=== PATIENT | female | born 1935 | race African-American/Black ===

== ENCOUNTER 2016-05-15 11:43 | Outpatient (CLI) | payer MEDICARE, OTHER ==
[2016-05-15 13:24] LABS: ALT (SGPT) 14 U/L (0-55); AST (SGOT) 18 U/L (5-34); Alkaline Phosphatase 60 U/L (40-150); Anion Gap 11 mmol/L (10-20); BUN (Urea Nitrogen) 10 mg/dL (9.8-20.1); Bilirubin, Total 0.4 mg/dL (0.2-1.2); Calc. Creatinine Clearance 0 mL/min (70-130); Calcium 9.1 mg/dL (7.8-10.44); Carbon Dioxide 24 mmol/L (23-31); Chloride 111 mmol/L (98-107); Estimated GFR-MDRD 83; LDL Cholesterol, Calculated 79 mg/dL; Protein, Total 6.7 g/dL (5.8-8.1)
== END 2016-05-15 11:44 | disposition home or self-care (01) ==
LOC: NAVSJIPCSP 11:43
PROVIDERS: ATTEND Internal Medicine
DX: I11.9 Hypertensive heart disease without heart failure (principal); Q61.9 Cystic kidney disease, unspecified; E78.2 Mixed hyperlipidemia
CPT/HCPCS: 36415; 80053; 80061

== ENCOUNTER 2016-07-21 09:10 | Emergency (ER) | payer MEDICARE, OTHER ==
[2016-07-21] MEDS ORDERED: Diazepam 10 MG/2 ML SYRINGE ONE (09:46)
[2016-07-21] MEDS ORDERED: Ketorolac Tromethamine 30 MG/ML VIAL ONE (09:46)
--- NOTE | 2016-07-21 11:40 | CT ---
CT LUMBAR SPINE: Date: 07/21/16 PROVIDED CLINICAL HISTORY: Back pain status post injury. FINDINGS: Comparison made with the examination performed 09/19/15. Five non-rib bearing lumbar-type vertebral bodies are again noted. There has been interval mild supe rior end plate compression deformity of L1 with CT findings suggesting an acute to subacute process. Vertebral body heights appear otherwise preserved. No additional fracture is identified. There is s table abnormal soft tissue density in the left ventral lateral spinal canal posterior to the L5-S1 l evel presumably reflecting herniated disc material. This appears slightly less conspicuous than on t he prior study. The osseous structures demonstrate no concerning osteoblastic or osteolytic lesions. IMPRESSION: 1. Interval superior end plate compression deformity of L1, with CT findings suggesting an acute to subacute process. 2. Stable slightly decreased presumed left paracentral disc extrusion at L5-S1. Consider further ch aracterization with lumbar MRI on a nonemergent basis as clinically indicated. POS: [facility]
== END 2016-07-21 11:30 | disposition home or self-care (01) ==
LOC: NAV ERS 09:10
DX: S32.010A Wedge compression fracture of first lumbar vertebra, initial encounter for closed fracture (principal); I25.2 Old myocardial infarction; K21.9 Gastro-esophageal reflux disease without esophagitis; E78.5 Hyperlipidemia, unspecified; E78.00 Pure hypercholesterolemia, unspecified; I10 Essential (primary) hypertension; Z87.891 Personal history of nicotine dependence; W18.30XA Fall on same level, unspecified, initial encounter
CPT/HCPCS: 72131; 96372; J1885; J3360

== ENCOUNTER 2016-08-06 09:46 | Outpatient (CLI) | payer MEDICARE, OTHER ==
[2016-08-06 13:42] LABS: Anion Gap 15 mmol/L (10-20); BUN (Urea Nitrogen) 16 mg/dL (9.8-20.1); Calc. Creatinine Clearance 0 mL/min (70-130); Calcium 9.3 mg/dL (7.8-10.44); Carbon Dioxide 23 mmol/L (23-31); Cardiac Risk 3.5 (Less than 4.5); Chloride 101 mmol/L (98-107); Cholesterol 139 mg/dL (< 200 Desired); Estimated GFR-MDRD 76; Glucose 105 mg/dL (83-110); HDL Cholesterol 40 mg/dL (>60 Neg Risk); LDL Cholesterol, Calculated 82 mg/dL; Potassium 4.3 mmol/L (3.5-5.1); Sodium 135 mmol/L (136-145); Triglycerides 87 mg/dL (Less than 150)
[2016-08-06 14:02] LABS: Hemoglobin 11.2 g/dL (12.0-16.0); Mean Corpuscular HGB CONC 31.5 g/dL (32.0-36.0); Mean Corpuscular Hemoglobin 24.8 pg (27.0-31.0); Mean Corpuscular Volume 78.5 fl (81.0-99.0); Mean Platelet Volume 7.7 fL (7.4-10.4); Platelet Count 236 thou/uL (130-400); RBC Distribution Width 13.9 % (11.5-14.5); Red Blood Cell (RBC) Count 4.53 mill/uL (4.20-5.40); White Blood Cell (WBC) Count 5.3 thou/uL (4.8-10.8)
[2016-08-06 14:13] LABS: Anisocytosis SLIGHT = 6-15 cells (100X) (0-5/hpf); MDiff Complete? YES; Microcytosis SLIGHT = 6-15 cells (100X) (0-5/hpf); PLT Morphology Comment Appears Adequate
== END 2016-08-06 09:47 | disposition home or self-care (01) ==
LOC: NAVSJIPCSP 09:46
PROVIDERS: ATTEND Internal Medicine
DX: Z51.81 Encounter for therapeutic drug level monitoring (principal); I11.9 Hypertensive heart disease without heart failure; Z79.899 Other long term (current) drug therapy
CPT/HCPCS: 36415; 80048; 80061; 85025

== ENCOUNTER 2016-08-07 11:38 | Outpatient (CLI) | payer MEDICARE, OTHER ==
[2016-08-07 12:02] LABS: Bilirubin Negative (Negative); Blood, Urine Negative (Negative); Clarity Clear (Clear); Glucose, Urine (Dipstick) Negative (Negative); Leukocyte Trace (Negative); Nitrite Negative (Negative); Protein, Urine (Dipstick) Negative (Neg-Trace); Urobilinogen 0.2 mg/dL (0.2-1.0)
[2016-08-07 12:14] LABS: Bacteria/HPF Rare-Few HPF (None Seen); RBC/HPF None Seen HPF (0-3); Squamous Epithelial 0-3 HPF (0-3); WBC/HPF 0-3 HPF (0-3)
== END 2016-08-07 11:39 | disposition home or self-care (01) ==
LOC: NAV LABSP 11:38
PROVIDERS: ATTEND Internal Medicine
DX: I11.9 Hypertensive heart disease without heart failure (principal); Z79.899 Other long term (current) drug therapy
CPT/HCPCS: 81003; 81015

== ENCOUNTER 2016-11-15 10:19 | Outpatient (CLI) | payer MEDICARE, MEDICAID ==
[2016-11-15 12:46] LABS: #Eosinphils 0.1 thou/uL (0.0-0.7); #Lymphocytes 1.8 thou/uL (1.20-3.40); #Monocytes 0.3 thou/uL (0.11-0.59); #Neutrophils 3.1 thou/uL (1.40-6.50); %Basophils 0.9 % (0.0-1.0); %Eosinophils 2.6 % (0.0-10.0); %Monocytes 5.5 % (0.0-10.0); %Neutrophils 58.1 % (42.0-75.0); Hemoglobin 10.8 g/dL (12.0-16.0); Mean Corpuscular HGB CONC 31.2 g/dL (32.0-36.0); Mean Corpuscular Hemoglobin 25.4 pg (27.0-31.0); Mean Corpuscular Volume 81.3 fl (81.0-99.0); Mean Platelet Volume 7.4 fL (7.4-10.4); Platelet Count 218 thou/uL (130-400); RBC Distribution Width 13.6 % (11.5-14.5); Red Blood Cell (RBC) Count 4.23 mill/uL (4.20-5.40); White Blood Cell (WBC) Count 5.4 thou/uL (4.8-10.8)
[2016-11-15 13:08] LABS: Cardiac Risk 3.3 (Less than 4.5)
== END 2016-11-15 10:20 | disposition home or self-care (01) ==
LOC: NAVSJIPCSP 10:19
PROVIDERS: ATTEND Internal Medicine
DX: E78.5 Hyperlipidemia, unspecified (principal); D50.9 Iron deficiency anemia, unspecified; Z79.899 Other long term (current) drug therapy
CPT/HCPCS: 36415; 80061; 82728; 83540; 83550; 85025

== ENCOUNTER 2017-01-14 15:13 | Outpatient (CLI) | payer MEDICARE, MEDICAID ==
[2017-01-14 17:37] LABS: Chloride 110 mmol/L (98-107); Potassium 4.1 mmol/L (3.5-5.1); Sodium 145 mmol/L (136-145)
[2017-01-14 18:53] LABS: BUN (Urea Nitrogen) 10 mg/dL (9.8-20.1); Calc. Creatinine Clearance 0 mL/min (70-130); Calcium 9.5 mg/dL (7.8-10.44); Carbon Dioxide 23 mmol/L (23-31); Estimated GFR-MDRD 81; Glucose 80 mg/dL (83-110)
[2017-01-14 19:58] LABS: Anion Gap 16 mmol/L (10-20)
[2017-01-14 20:03] LABS: #Eosinphils 0.2 thou/uL (0.0-0.7); #Lymphocytes 1.9 thou/uL (1.20-3.40); #Monocytes 0.3 thou/uL (0.11-0.59); #Neutrophils 3.6 thou/uL (1.40-6.50); %Basophils 0.5 % (0.0-1.0); %Eosinophils 2.6 % (0.0-10.0); %Lymphocytes 31.6 % (21.0-51.0); %Neutrophils 60.2 % (42.0-75.0); Hemoglobin 11.7 g/dL (12.0-16.0); Mean Corpuscular HGB CONC 30.8 g/dL (32.0-36.0); Mean Corpuscular Hemoglobin 24.8 pg (27.0-31.0); Mean Corpuscular Volume 80.6 fl (81.0-99.0); Mean Platelet Volume 9.2 fL (7.4-10.4); Platelet Count 199 thou/uL (130-400); RBC Distribution Width 13.9 % (11.5-14.5); Red Blood Cell (RBC) Count 4.73 mill/uL (4.20-5.40); White Blood Cell (WBC) Count 5.9 thou/uL (4.8-10.8)
== END 2017-01-14 15:14 | disposition home or self-care (01) ==
LOC: NAVSJIPCSP 15:13 → NAV LAB 15:14
PROVIDERS: ATTEND Internal Medicine
DX: R04.2 Hemoptysis (principal); R04.0 Epistaxis
CPT/HCPCS: 80048; 85025

== ENCOUNTER 2017-07-23 12:49 | Outpatient (CLI) | payer MEDICARE, MEDICAID, OTHER ==
--- NOTE | 2017-07-23 14:28 | RAD ---
PA AND LATERAL CHEST: History: Cough, shortness of breath. FINDINGS: The heart size is normal. The aorta is tortuous. The lungs are well expanded without focal areas of c onsolidation, pneumothorax, or pleural effusions. No acute osseous abnormalities are seen. IMPRESSION: No radiographic evidence of acute cardiopulmonary process. POS: [facility]
== END 2017-07-23 12:50 | disposition home or self-care (01) ==
LOC: NAV RAD 12:49
PROVIDERS: ATTEND Internal Medicine
DX: R05 Cough (principal)
CPT/HCPCS: 71046

== ENCOUNTER 2017-11-15 11:26 | Emergency (ER) | payer MEDICARE, OTHER ==
[2017-11-15] MEDS ORDERED: Acetaminophen/Codeine 30-300mg Tablet ONE (11:42)
[2017-11-15] MEDS ORDERED: Ibuprofen 200 MG TAB ONE (11:42)
== END 2017-11-15 12:38 | disposition home or self-care (01) ==
LOC: NAV ERS 11:26
DX: M13.0 Polyarthritis, unspecified (principal); I10 Essential (primary) hypertension; I25.2 Old myocardial infarction; K21.9 Gastro-esophageal reflux disease without esophagitis; E78.5 Hyperlipidemia, unspecified; Z87.891 Personal history of nicotine dependence; Z79.899 Other long term (current) drug therapy
CPT/HCPCS: 99283

== ENCOUNTER 2018-01-21 17:14 | Emergency (ER) | payer MEDICARE, MEDICAID ==
[2018-01-21] MEDS ORDERED: cloNIDine 0.1 MG TAB ONE (17:34)
[2018-01-21] MEDS ORDERED: Lisinopril 20 MG TAB ONE (18:24)
== END 2018-01-21 19:10 | disposition home or self-care (01) ==
LOC: NAV ERS 17:14
DX: R04.0 Epistaxis (principal); I10 Essential (primary) hypertension; K21.9 Gastro-esophageal reflux disease without esophagitis; I25.2 Old myocardial infarction; E78.5 Hyperlipidemia, unspecified; Z87.891 Personal history of nicotine dependence; Z79.899 Other long term (current) drug therapy; Z79.891 Long term (current) use of opiate analgesic
CPT/HCPCS: 99283

== ENCOUNTER 2018-06-28 08:51 | Emergency (ER) | payer MEDICARE, MEDICAID ==
[2018-06-28] MEDS ORDERED: Meclizine HCl 25 MG TAB ONE (09:48)
[2018-06-28 09:55] LABS: #Basophils 0.1 thou/uL (0.0-0.2); #Eosinphils 0.1 thou/uL (0.0-0.7); #Lymphocytes 1.5 thou/uL (1.20-3.40); #Monocytes 0.6 thou/uL (0.11-0.59); #Neutrophils 7.4 thou/uL (1.40-6.50); %Basophils 1.1 % (0.0-1.0); %Eosinophils 1.4 % (0.0-10.0); %Lymphocytes 15.7 % (21.0-51.0); %Monocytes 5.7 % (0.0-10.0); %Neutrophils 76.1 % (42.0-75.0); Hemoglobin 11.2 g/dL (12.0-16.0); Mean Corpuscular HGB CONC 30.4 g/dL (32.0-36.0); Mean Corpuscular Hemoglobin 26.3 pg (27.0-31.0); Mean Corpuscular Volume 86.3 fL (78.0-98.0); Mean Platelet Volume 7.3 fL (7.4-10.4); Platelet Count 232 thou/uL (130-400); RBC Distribution Width 15.7 % (11.5-14.5); Red Blood Cell (RBC) Count 4.26 mill/uL (4.20-5.40); White Blood Cell (WBC) Count 9.7 thou/uL (4.8-10.8)
[2018-06-28 10:09] LABS: Bilirubin Negative (Negative); Blood, Urine Trace (Negative); Glucose, Urine (Dipstick) Negative (Negative); Leukocyte Large (Negative); Nitrite Negative (Negative); Protein, Urine (Dipstick) Negative (Neg-Trace); Specific Gravity, Urine 1.015 (1.005-1.030); Urobilinogen 0.2 mg/dL (0.2-1.0)
[2018-06-28 10:10] LABS: ALT (SGPT) 11 U/L (8-55); AST (SGOT) 21 U/L (5-34); Albumin 4.3 g/dL (3.4-4.8); Alkaline Phosphatase 46 U/L (40-150); Anion Gap 15 mmol/L (10-20); BUN (Urea Nitrogen) 12 mg/dL (9.8-20.1); Bilirubin, Total 0.6 mg/dL (0.2-1.2); Calc. Creatinine Clearance 0 mL/min (70-130); Calcium 9.6 mg/dL (7.8-10.44); Carbon Dioxide 23 mmol/L (23-31); Chloride 107 mmol/L (98-107); Estimated GFR-MDRD 86; Globulin 2.9 g/dL (2.4-3.5); Glucose 106 mg/dL (83-110); Potassium 3.7 mmol/L (3.5-5.1); Protein, Total 7.2 g/dL (6.0-8.3); Sodium 141 mmol/L (136-145)
[2018-06-28 10:17] LABS: Clarity SL HAZY (Clear)
[2018-06-28 10:19] LABS: Bacteria/HPF 1+ HPF (None Seen); RBC/HPF 0-3 HPF (0-3); Squamous Epithelial 0-3 HPF (0-3)
[2018-06-28] MEDS ORDERED: Cipro 250 MG TAB ONE (10:27)
--- NOTE | 2018-06-28 10:43 | RAD ---
PORTABLE AP CHEST: Date: 06/28/18 HISTORY: Cough and dizziness. Vertigo. COMPARISON: 07/23/17. FINDINGS: Metallic densities overlie the midline, likely related to overlying clothing artifact. The cardiac si lhouette is within normal limits. Pulmonary vasculature is magnified by projection, but is at the upp er limits of normal. No consolidation or pleural fluid is seen, and the lungs are otherwise clear. Va scular calcifications are seen in an ectatic thoracic aorta. There has been no other interval change from prior exam. IMPRESSION: No acute cardiopulmonary process. POS: [facility]
--- NOTE | 2018-06-28 10:45 | CT ---
NONCONTRAST CT HEAD: Date: 06/28/18 HISTORY: Dizziness with standing. Vertigo. Patient feels bad. COMPARISON: None available. FINDINGS: There is diminished attenuation seen in the periventricular white matter, which is nonspecific but li courtney reflective of chronic small vessel ischemic changes. There is no evidence of an acute cortical i nfarction, hemorrhage, mass effect, or midline shift. Mild cerebral volume loss is present. Ventricul ar system is normal in size, shape, and position. Visualized paranasal sinuses and mastoid air cells are clear. Calvarial structures are intact. IMPRESSION: 1. No acute intracranial abnormality is demonstrated. 2. Chronic small vessel ischemic changes and cerebral volume loss. POS: [facility]
== END 2018-06-28 12:12 | disposition short-term general hospital (02) ==
LOC: NAV ERS 08:51
DX: R42 Dizziness and giddiness (principal); I10 Essential (primary) hypertension; N39.0 Urinary tract infection, site not specified; I25.2 Old myocardial infarction; K21.9 Gastro-esophageal reflux disease without esophagitis; E78.5 Hyperlipidemia, unspecified; Z87.891 Personal history of nicotine dependence; Z79.899 Other long term (current) drug therapy
CPT/HCPCS: 70450; 71045; 80053; 81003; 81015; 84443; 84484; 85025; 93005

== ENCOUNTER 2018-08-16 11:38 | Emergency (ER) | payer MEDICARE, OTHER | END 2018-08-16 12:30 | disposition home or self-care (01) | LOC: NAV ERS 11:38 | DX: R51 Headache (principal); E78.5 Hyperlipidemia, unspecified; I10 Essential (primary) hypertension; I25.2 Old myocardial infarction; K21.9 Gastro-esophageal reflux disease without esophagitis; Z87.891 Personal history of nicotine dependence; Z79.899 Other long term (current) drug therapy | CPT/HCPCS: 99283 ==

== ENCOUNTER 2018-08-22 12:02 | Emergency (ER) | payer MEDICARE, OTHER | END 2018-08-22 12:59 | disposition home or self-care (01) | LOC: NAV ERS 12:02 | DX: R51 Headache (principal); I25.2 Old myocardial infarction; K21.9 Gastro-esophageal reflux disease without esophagitis; E78.5 Hyperlipidemia, unspecified; I10 Essential (primary) hypertension; Z87.891 Personal history of nicotine dependence; Z79.899 Other long term (current) drug therapy ==

== ENCOUNTER 2018-09-01 09:46 | Emergency (ER) | payer MEDICARE, OTHER ==
[2018-09-01] MEDS ORDERED: Acetaminophen/Codeine 30-300mg Tablet ONE (10:10)
[2018-09-01] MEDS ORDERED: Cyclobenzaprine 10 MG TAB ONE (10:10)
== END 2018-09-01 11:40 | disposition home or self-care (01) ==
LOC: NAV ERS 09:46
DX: S39.82XA Other specified injuries of lower back, initial encounter (principal); E78.5 Hyperlipidemia, unspecified; I10 Essential (primary) hypertension; K21.9 Gastro-esophageal reflux disease without esophagitis; Z87.891 Personal history of nicotine dependence; Z79.899 Other long term (current) drug therapy; X58.XXXA Exposure to other specified factors, initial encounter
CPT/HCPCS: 99283

== ENCOUNTER 2018-09-05 10:57 | Outpatient (CLI) | payer MEDICARE, OTHER ==
--- NOTE | 2018-09-05 11:27 | RAD ---
LUMBAR SPINE 3 VIEWS: HISTORY: Acute back pain FINDINGS: Comparison is made with 09/03/2016. There is stable mild anterior wedge compression of the superior endplate of L1 vertebral body. No new compression fracture or subluxation is identified. Mild degenerative changes in the spine are again seen.
--- NOTE | 2018-09-05 11:31 | RAD ---
XR Thoracic Spine 3 V STANDARD History: [Acute bilateral thoracic back pain.] Comparison: Radiograph June 28, 2018 Findings: There is no acute fracture or malalignment of the thoracic spine. Compression deformity is present at L1, please see lumbar spine report. Dense calcifications of the aorta. Lungs are clear. Impression: No acute fracture or malalignment of the thoracic spine.
== END 2018-09-05 10:58 | disposition home or self-care (01) ==
LOC: NAV RAD 10:57
PROVIDERS: ATTEND Nurse Practitioner Adult Health
DX: M54.6 Pain in thoracic spine (principal)
CPT/HCPCS: 72072; 72100

== ENCOUNTER 2018-12-27 08:39 | Emergency (ER) | payer MEDICARE, OTHER ==
[2018-12-27] MEDS ORDERED: Ondansetron PF 4 MG/2 ML Vial ONE (09:11)
[2018-12-27] MEDS ORDERED: Meclizine HCl 25 MG TAB ONE (09:11)
--- NOTE | 2018-12-27 09:43 | CT ---
Brain CT without IV contrast: HISTORY: Dizziness and elevated blood pressure COMPARISON: 07/16/2018 FINDINGS: Scattered chronic white matter ischemic change. No focal mass or midline shift. No intra or extra-axi al hemorrhage. Sinuses and mastoids are clear. IMPRESSION: No significant acute process. No mass or bleed.
[2018-12-27 10:06] LABS: #Basophils 0.1 thou/uL (0.0-0.2); #Eosinphils 0.1 thou/uL (0.0-0.7); #Lymphocytes 1.1 thou/uL (1.20-3.40); #Monocytes 0.7 thou/uL (0.11-0.59); #Neutrophils 9.2 thou/uL (1.40-6.50); %Basophils 0.5 % (0.0-1.0); %Lymphocytes 9.8 % (21.0-51.0); %Monocytes 6.4 % (0.0-10.0); %Neutrophils 82.2 % (42.0-75.0); Hemoglobin 10.4 g/dL (12.0-16.0); Mean Corpuscular HGB CONC 29.2 g/dL (32.0-36.0); Mean Corpuscular Hemoglobin 23.9 pg (27.0-31.0); Mean Corpuscular Volume 81.9 fL (78.0-98.0); Mean Platelet Volume 7.2 fL (7.4-10.4); Platelet Count 192 thou/uL (130-400); RBC Distribution Width 24.4 % (11.5-14.5); Red Blood Cell (RBC) Count 4.35 mill/uL (4.20-5.40); White Blood Cell (WBC) Count 11.2 thou/uL (4.8-10.8)
[2018-12-27 10:11] LABS: ALT (SGPT) 14 U/L (8-55); AST (SGOT) 23 U/L (5-34); Albumin 4.1 g/dL (3.4-4.8); Alkaline Phosphatase 43 U/L (40-150); Anion Gap 16 mmol/L (10-20); BUN (Urea Nitrogen) 11 mg/dL (9.8-20.1); Bilirubin, Total 0.7 mg/dL (0.2-1.2); Calc. Creatinine Clearance 0 mL/min (70-130); Calcium 9.1 mg/dL (7.8-10.44); Carbon Dioxide 21 mmol/L (23-31); Chloride 107 mmol/L (98-107); Estimated GFR-MDRD 82; Globulin 2.5 g/dL (2.4-3.5); Glucose 85 mg/dL (83-110); Magnesium 2.1 mg/dL (1.6-2.6); Potassium 3.8 mmol/L (3.5-5.1); Protein, Total 6.6 g/dL (6.0-8.3); Sodium 140 mmol/L (136-145)
[2018-12-27 10:32] LABS: CKMB 0.4 ng/mL (0-6.6)
[2018-12-27 10:58] LABS: Bilirubin Negative (Negative); Blood, Urine Negative (Negative); Clarity Clear (Clear); Glucose, Urine (Dipstick) Negative (Negative); Leukocyte Small (Negative); Nitrite Negative (Negative); Protein, Urine (Dipstick) Negative (Neg-Trace); Urobilinogen 0.2 mg/dL (Less than 2)
[2018-12-27] MEDS ORDERED: cloNIDine 0.1 MG TAB ONE (11:04)
[2018-12-27] MEDS ORDERED: Clopidogrel Bisulfate 75 MG TAB ONE (11:04)
[2018-12-27 11:17] LABS: RBC/HPF 0-3 HPF (0-3); Squamous Epithelial 0-3 HPF (0-3); WBC/HPF 0-3 HPF (0-3)
[2018-12-27] MEDS ORDERED: Sodium Chloride 0.9% 1,000 ML ONE (11:28)
== END 2018-12-27 11:34 | disposition short-term general hospital (02) ==
LOC: NAV ERS 08:39
DX: I16.0 Hypertensive urgency (principal); I10 Essential (primary) hypertension; R79.89 Other specified abnormal findings of blood chemistry; I49.9 Cardiac arrhythmia, unspecified; I48.91 Unspecified atrial fibrillation; F03.90 Unspecified dementia, unspecified severity, without behavioral disturbance, psychotic disturbance, mood disturbance, and anxiety; M06.9 Rheumatoid arthritis, unspecified; E78.5 Hyperlipidemia, unspecified; I25.2 Old myocardial infarction; K21.9 Gastro-esophageal reflux disease without esophagitis; Z87.891 Personal history of nicotine dependence; Z79.899 Other long term (current) drug therapy; Z79.52 Long term (current) use of systemic steroids
CPT/HCPCS: 70450; 80053; 81003; 81015; 82553; 83735; 84484; 85025; 93005; 94760; 96361; 96374; J2405; J7050; J8597

== ENCOUNTER 2019-02-23 11:09 | Outpatient (CLI) | payer MEDICARE, OTHER ==
--- NOTE | 2019-02-23 11:26 | RAD ---
EXAM: Chest PA and lateral: HISTORY: Cough. Wheezing. COMPARISON: 07/23/2017 FINDINGS: Heart: Upper normal cardiac silhouette. Aorta: Atherosclerosis of the aortic knob. Pulmonary vessels: Normal Costophrenic angles: Costophrenic angles are clear. Lungs: No consolidation or masses. Pneumothorax: No pneumothorax Osseous structures: No osseous abnormalities IMPRESSION: No acute cardiopulmonary process. Atherosclerosis of the aortic knob.
== END 2019-02-23 11:10 | disposition home or self-care (01) ==
LOC: NAV RAD 11:09
PROVIDERS: ATTEND Nurse Practitioner Adult Health
DX: R05 Cough (principal); R06.2 Wheezing; I70.0 Atherosclerosis of aorta
CPT/HCPCS: 71046

== ENCOUNTER 2019-06-30 12:25 | Emergency (ER) | payer MEDICAID, MEDICARE | END 2019-06-30 13:21 | disposition home or self-care (01) | LOC: NAV ERS 12:25 | DX: T18.128A Food in esophagus causing other injury, initial encounter (principal); I10 Essential (primary) hypertension; Z87.891 Personal history of nicotine dependence; Z79.899 Other long term (current) drug therapy | CPT/HCPCS: 99282 ==

== ENCOUNTER 2019-10-16 12:58 | Outpatient (CLI) | payer MEDICARE, OTHER ==
--- NOTE | 2019-10-16 13:15 | RAD ---
PA AND LATEARL VIEWS OF THE CHEST: 10/16/19 HISTORY: Lung congestion. COMPARISON: 02/23/19. FINDINGS: The heart size is normal. The aorta is tortuous. The lungs are well expanded without lobar consolidat ion, pneumothoraces, or pleural effusions. No acute osseous abnormalities are seen. IMPRESSION: No radiographic evidence of acute cardiopulmonary process. POS: [facility]
== END 2019-10-16 12:59 | disposition home or self-care (01) ==
LOC: NAV RAD 12:58
PROVIDERS: ATTEND Internal Medicine Rheumatology
DX: R05 Cough (principal); M05.89 Other rheumatoid arthritis with rheumatoid factor of multiple sites
CPT/HCPCS: 71046

== ENCOUNTER 2019-12-16 19:18 | Emergency (ER) | payer MEDICARE, MEDICAID ==
[2019-12-16] MEDS ORDERED: Ondansetron PF 4 MG/2 ML Vial ONE (19:50)
[2019-12-16] MEDS ORDERED: Fentanyl 100 MCG/2 ML VIAL ONE (19:50)
[2019-12-16] MEDS ORDERED: Acetaminophen 500 MG TAB ONE (19:51)
--- NOTE | 2019-12-16 19:51 | RAD ---
Chest one view HISTORY: Hypertension. Chest pain. COMPARISON: 10/16/2019. FINDINGS: Cardiac silhouette is magnified and upper limits of normal in size. Pulmonary vasculature a lso upper limits of normal. Mediastinum is midline with aortic calcification. No lobar consolidation or evidence of pneumothorax. IMPRESSION : Borderline cardiomegaly and pulmonary vascular congestion. No florid edema is evident.
[2019-12-16 19:58] LABS: #Basophils 0.1 thou/uL (0.0-0.2); #Lymphocytes 1.2 thou/uL (1.20-3.40); #Monocytes 0.9 thou/uL (0.11-0.59); #Neutrophils 9.2 thou/uL (1.40-6.50); %Basophils 0.9 % (0.0-1.0); %Eosinophils 0.4 % (0.0-10.0); %Lymphocytes 10.8 % (21.0-51.0); %Monocytes 7.8 % (0.0-10.0); %Neutrophils 80.1 % (42.0-75.0); Hemoglobin 12.9 g/dL (12.0-16.0); Mean Corpuscular HGB CONC 30.3 g/dL (32.0-36.0); Mean Corpuscular Hemoglobin 28.4 pg (27.0-31.0); Mean Corpuscular Volume 93.6 fL (78.0-98.0); Mean Platelet Volume 9.3 fL (7.4-10.4); Platelet Count 217 thou/uL (130-400); RBC Distribution Width 15.1 % (11.5-14.5); Red Blood Cell (RBC) Count 4.55 mill/uL (4.20-5.40); White Blood Cell (WBC) Count 11.4 thou/uL (4.8-10.8)
[2019-12-16 20:11] LABS: ALT (SGPT) 23 U/L (8-55); AST (SGOT) 29 U/L (5-34); Albumin 4.5 g/dL (3.4-4.8); Alkaline Phosphatase 48 U/L (40-110); Anion Gap 17 mmol/L (10-20); BUN (Urea Nitrogen) 14 mg/dL (9.8-20.1); Bilirubin, Total 0.4 mg/dL (0.2-1.2); CK (CPK) 104 U/L (29-168); Calc. Creatinine Clearance 0 mL/min (70-130); Calcium 9.8 mg/dL (7.8-10.44); Carbon Dioxide 22 mmol/L (23-31); Chloride 105 mmol/L (98-107); Estimated GFR-MDRD 60; Globulin 2.9 g/dL (2.4-3.5); Glucose 111 mg/dL (83-110); Lipase 23 U/L (8-78); Potassium 4.2 mmol/L (3.5-5.1); Protein, Total 7.4 g/dL (6.0-8.3); Sodium 140 mmol/L (136-145)
[2019-12-16 20:40] LABS: CKMB 1.6 ng/mL (0-6.6)
[2019-12-16] MEDS ORDERED: Nitroglycerin 2% Ointment 1 INCH/1 GM Packet ONE (20:50)
[2019-12-16] MEDS ORDERED: Metoprolol Tartrate 5 MG/5 ML VIAL ONE (20:50)
== END 2019-12-16 21:18 | disposition short-term general hospital (02) ==
LOC: NAV ERS 19:18
DX: I16.0 Hypertensive urgency (principal); R79.89 Other specified abnormal findings of blood chemistry; I10 Essential (primary) hypertension; J44.9 Chronic obstructive pulmonary disease, unspecified; E78.00 Pure hypercholesterolemia, unspecified; Z87.891 Personal history of nicotine dependence; Z79.899 Other long term (current) drug therapy
CPT/HCPCS: 71045; 80053; 82550; 82553; 83690; 84484; 85025; 93005; 96374; 96375; J2405; J3010

== ENCOUNTER 2020-04-27 19:36 | Emergency (ER) | payer MEDICARE, OTHER, MEDICAID | END 2020-04-27 20:35 | disposition short-term general hospital (02) | LOC: NAV ERS 19:36 | DX: S00.03XA Contusion of scalp, initial encounter (principal); K21.9 Gastro-esophageal reflux disease without esophagitis; J44.9 Chronic obstructive pulmonary disease, unspecified; I10 Essential (primary) hypertension; E78.00 Pure hypercholesterolemia, unspecified; Z79.899 Other long term (current) drug therapy; W22.8XXA Striking against or struck by other objects, initial encounter ==

== ENCOUNTER 2020-05-13 13:53 | Outpatient (CLI) | payer MEDICARE, OTHER ==
--- NOTE | 2020-05-13 14:28 | CT ---
CT BRAIN NONCONTRAST: 05/13/20 HISTORY: 84-year-old female with headache and history of fall on 04/27/20. Rule out subacute subdural hematoma . FINDINGS: There is no midline shift or any other mass effect. There is no evidence of acute intracranial hemor rhage, large cortical infarct, obstructive hydrocephalus, or extraaxial fluid collection. The calvar ium is intact. There is diffuse parenchymal volume loss. There are low attenuation areas in the whi te matter. These are nonspecific, but in a patient of this age, they are probably chronic ischemic w renata matter changes due to microvascular atherosclerosis. IMPRESSION: 1) No acute intracranial findings. 2) Involutional changes and chronic ischemic white matter changes. jn [] POS: [facility]
== END 2020-05-13 13:54 | disposition home or self-care (01) ==
LOC: NAV CT 13:53
PROVIDERS: ATTEND Family Medicine
DX: R51.9 Headache, unspecified (principal); R41.3 Other amnesia; I67.82 Cerebral ischemia; Z87.828 Personal history of other (healed) physical injury and trauma
CPT/HCPCS: 70450

== ENCOUNTER 2020-05-23 08:01 | Emergency (ER) | payer MEDICARE, OTHER ==
[2020-05-23 08:38] LABS: #Lymphocytes 0.5 thou/uL (1.20-3.40); #Monocytes 0.1 thou/uL (0.11-0.59); #Neutrophils 7.3 thou/uL (1.40-6.50); %Basophils 0.3 % (0.0-1.0); %Eosinophils 0.6 % (0.0-10.0); %Lymphocytes 5.9 % (21.0-51.0); %Monocytes 1.3 % (0.0-10.0); %Neutrophils 91.9 % (42.0-75.0); Hemoglobin 10.5 g/dL (12.0-16.0); Mean Corpuscular HGB CONC 31.3 g/dL (32.0-36.0); Mean Corpuscular Hemoglobin 27.8 pg (27.0-31.0); Mean Platelet Volume 8.6 fL (7.4-10.4); Platelet Count 162 thou/uL (130-400); RBC Distribution Width 16.6 % (11.5-14.5); Red Blood Cell (RBC) Count 3.77 mill/uL (4.20-5.40)
[2020-05-23] MEDS ORDERED: Sodium Chloride 0.9% 1,000 ML ONE (08:42)
[2020-05-23 08:45] LABS: Bilirubin Negative (Negative); Blood, Urine Small (Negative); Clarity Cloudy (Clear); Glucose, Urine (Dipstick) Negative (Negative); Ketone, Urine Negative (Negative); Leukocyte Moderate (Negative); Nitrite Negative (Negative); Protein, Urine (Dipstick) 30 mg/dL (Neg-Trace); Urobilinogen > or = 8.0 mg/dL (Less than 2); pH, Urine 8.5 (5.0-9.0)
[2020-05-23 08:50] LABS: Bacteria/HPF 3+ HPF (None Seen)
[2020-05-23] MEDS ORDERED: Cefepime 2 GM VIAL ONE (08:57)
[2020-05-23] MEDS ORDERED: Sodium Chloride 0.9% 100 ML ONE (08:57)
[2020-05-23 09:02] LABS: ALT (SGPT) 20 U/L (8-55); AST (SGOT) 23 U/L (5-34); Albumin 3.4 g/dL (3.4-4.8); Alkaline Phosphatase 64 U/L (40-110); Anion Gap 13 mmol/L (10-20); BUN (Urea Nitrogen) 15 mg/dL (9.8-20.1); Bilirubin, Total 1.3 mg/dL (0.2-1.2); Calc. Creatinine Clearance 0 mL/min (70-130); Carbon Dioxide 23 mmol/L (23-31); Chloride 106 mmol/L (98-107); Globulin 2.3 g/dL (2.4-3.5); Glucose 91 mg/dL (83-110); Potassium 3.5 mmol/L (3.5-5.1); Protein, Total 5.7 g/dL (5.8-8.1); Sodium 138 mmol/L (136-145)
--- NOTE | 2020-05-23 09:09 | RAD ---
Chest one view HISTORY: Fever. COMPARISON: 12/16/2019. FINDINGS: Cardiac silhouette is magnified by projection. Pulmonary vasculature are unremarkable. Mediastinum is midline with calcification in a tortuous aorta. No focal infiltrate or evidence of pneumothorax. IMPRESSION : No acute abnormalities are demonstrated.
[2020-05-23] MEDS ORDERED: Acetaminophen 325 MG TAB ONE (09:26)
[2020-05-23] MEDS ORDERED: Acetaminophen 500 MG TAB ONE (09:52)
[2020-05-23 11:07] LABS: SARS-CoV-2 NAA Rapid Test Not Detected (NotDetected)
== END 2020-05-23 11:14 | disposition critical access hospital (66) ==
LOC: NAV ERS 08:01
DX: N39.0 Urinary tract infection, site not specified (principal); R41.82 Altered mental status, unspecified; K21.9 Gastro-esophageal reflux disease without esophagitis; I10 Essential (primary) hypertension; J44.9 Chronic obstructive pulmonary disease, unspecified; E78.00 Pure hypercholesterolemia, unspecified; Z87.891 Personal history of nicotine dependence; Z79.899 Other long term (current) drug therapy
CPT/HCPCS: 0240U; 71045; 80053; 81003; 81015; 83605; 85025; 87040; 87086; 87804; 93005; J0692; J3490; J7050

== ENCOUNTER 2020-05-23 11:44 | Observation (INO) | payer MEDICARE, OTHER ==
[2020-05-23] MEDS ORDERED: Acetaminophen 500 MG TAB PO PRN (12:06)
[2020-05-23 12:30] VITALS: BMI 20.9
[2020-05-23] MEDS ORDERED: Acetaminophen 325 MG TAB PO PRN (12:50)
[2020-05-23] MEDS ORDERED: Loperamide HCl 2 MG CAP PO PRN (12:51)
[2020-05-23] MEDS ORDERED: Sodium Chloride 0.65% Nasal 44 ML BOT EA NARE PRN (12:51)
[2020-05-23] MEDS ORDERED: Ondansetron ODT 4 MG TAB PO PRN (12:51)
[2020-05-23] MEDS ORDERED: Calcium Carbonate 500 MG ChewTAB PO PRN (12:51)
[2020-05-23] MEDS ORDERED: Senokot S 8.6-50 MG TAB PO PRN (12:51)
[2020-05-23] MEDS ORDERED: Benzonatate 100 MG CAP PO PRN (12:51)
[2020-05-23] MEDS ORDERED: Bisacodyl 5 MG TAB PO PRN (12:51)
[2020-05-23] MEDS: Sodium Chloride 0.9% 1,000 ML IV SCH (13:04)
--- NOTE | 2020-05-23 19:42 | HP ---
HISTORY OF PRESENT ILLNESS: The patient is a pleasant 84-year-old female with past medical history of GERD hypertension, hyperlipidemia, chronic low back pain, CAD, dementia. The patient presented earlier to ED at [facility], brought in by her daughter for confusion. The patient also had a fever with no tachycardia. However, patient is on beta bobby, which may cause her heart rate to be suppressed. The patient does have mild confusion. However, she is confused at baseline with a recent dementia exam which did show dementia. The patient was given cefepime in the ED and admitted for observation. REVIEW OF SYSTEMS: Denies any fever, chills, cough, congestion, nausea, vomiting, diarrhea, palpitations, chest pain. Does report chronic low back pain with no increase in the pain. Also reports dysuria as well. PAST MEDICAL HISTORY: GERD, hypertension, dyslipidemia, dementia, chronic low back pain, history of left carotid stenosis. PAST SURGICAL HISTORY: Tubal ligation and cataract surgery. ALLERGIES: ASPIRIN, LIDOCAINE. HOME MEDICATIONS: 1. Lisinopril 40 p.o. daily. 2. Lovastatin 40 mg p.o. daily. 3. Methotrexate 4 tabs p.o. q. Saturday, Saturday. 4. Metoprolol tartrate 25 mg b.i.d. 5. Protonix 40 mg p.o. daily. 6. Prednisone 5 mg p.o. q.a.m. with meals. PHYSICAL EXAMINATION: VITAL SIGNS: Temperature was greater than 101 in the ED, however, now it is 99.7, pulse 75, respirations 20, O2 sats 98% on room air, blood pressure 120/58. GENERAL: Well-appearing, well-developed 84-year-old female sitting on the side of bed, eating her lunch in no acute distress. LUNGS: Respirations clear to auscultation bilaterally. No wheezes or rhonchi. HEART: Regular rate and rhythm. No murmurs, gallops, or rubs. ABDOMEN: Soft, nontender to palpation. Bowel sounds positive in all 4 quadrants. EXTREMITIES: Equal bilaterally. NEURO: Intact. Alert and oriented x4. ASSESSMENT: 1. Urinary tract infection, awaiting cultures. 2. Hypertension. 3. Hyperlipidemia. 4. Dementia. PLAN: The patient is status post 1 dose of 2 g cefepime in the ED. We will continue this. The patient also on 75 mL/hour of normal saline. We will continue this as well. Start p.r.n. Tylenol for fever. Regular diet. NARAYAN hose for DVT prophylaxis along with ambulation. The patient will likely be discharged in a.m. once fever has resolved and patient has had 2 full doses of cefepime. We will transition to p.o. medications in a.m. and follow up from there. Job ID: [id number]
[2020-05-23] MEDS: Cefepime 2 GM in Sodium Chloride 0.9% 100 ML IVPB SCH (20:40)
[2020-05-23] MEDS: Famotidine 20 MG TAB PO SCH (20:40)
[2020-05-23] MEDS: Metoprolol Tartrate 25 MG TAB PO SCH (20:40)
[2020-05-23] MEDS ORDERED: Atorvastatin Calcium 10 MG TAB PO SCH (21:00)
[2020-05-24] MEDS: Sodium Chloride 0.9% 1,000 ML IV SCH (01:13)
[2020-05-24 05:38] LABS: Anion Gap 14 mmol/L (10-20); BUN (Urea Nitrogen) 10 mg/dL (9.8-20.1); Calc. Creatinine Clearance 57 mL/min (70-130); Calcium 7.2 mg/dL (7.8-10.44); Carbon Dioxide 16 mmol/L (23-31); Chloride 112 mmol/L (98-107); Potassium 3.7 mmol/L (3.5-5.1); Sodium 138 mmol/L (136-145)
[2020-05-24 05:40] LABS: #Eosinphils 0.2 thou/uL (0.0-0.7); #Lymphocytes 0.3 thou/uL (1.20-3.40); #Monocytes 0.1 thou/uL (0.11-0.59); #Neutrophils 5.3 thou/uL (1.40-6.50); %Basophils 0.6 % (0.0-1.0); %Eosinophils 3.6 % (0.0-10.0); %Lymphocytes 4.7 % (21.0-51.0); %Monocytes 1.5 % (0.0-10.0); %Neutrophils 89.7 % (42.0-75.0); Hemoglobin 10.3 g/dL (12.0-16.0); Mean Corpuscular HGB CONC 30.7 g/dL (32.0-36.0); Mean Corpuscular Hemoglobin 27.9 pg (27.0-31.0); Mean Corpuscular Volume 91.1 fL (78.0-98.0); Mean Platelet Volume 8.1 fL (7.4-10.4); Platelet Count 117 thou/uL (130-400); RBC Distribution Width 16.7 % (11.5-14.5); Red Blood Cell (RBC) Count 3.69 mill/uL (4.20-5.40); White Blood Cell (WBC) Count 5.9 thou/uL (4.8-10.8)
[2020-05-24 05:41] LABS: Glucose 58 mg/dL (83-110); Hypochromia SLIGHT = 6-15 cells (100X) (0-5/hpf); MDiff Complete? YES; Platelet Morphology Comment Appears Decreased
[2020-05-24] MEDS ORDERED: predniSONE 5 MG TAB PO SCH (08:00)
[2020-05-24] MEDS ORDERED: Lisinopril 20 MG TAB PO SCH (09:00)
[2020-05-24] MEDS: Cefepime 2 GM in Sodium Chloride 0.9% 100 ML IVPB SCH (09:03)
[2020-05-24] MEDS: Famotidine 20 MG TAB PO SCH (09:04)
[2020-05-24] MEDS: Metoprolol Tartrate 25 MG TAB PO SCH (09:04)
[2020-05-24 11:57] VITALS: BP 121/58; TEMP 97.7
[2020-05-24] MEDS ORDERED: Ciprofloxacin 500 MG TAB PO SCH (12:45)
--- NOTE | 2020-05-24 13:22 | DIS ---
DATE OF ADMISSION: 05/23/2020 DATE OF DISCHARGE: 05/24/2020 CONSULTS: None. PROCEDURES: None. HOSPITAL COURSE: The patient was admitted for UTI with fever and confusion, pt does have baseline confusion and it was hard to determine if this was due to UTI or not. However, overall, the patient has improved since admission. She received cefepime as well as IV fluids. She did have a bowel movement. She is eating and tolerating p.o. well. She will be discharged home in stable condition with a 7-day course of ciprofloxacin. We will give her one dose here and watch her for approximately 30 minutes to monitor for any allergy reaction and if the patient tolerates this dose well, we will discharge her home in stable condition. The patient will follow up with me in 7 days for followup. DISCHARGE MEDICATIONS: 1. Pantoprazole 40 mg daily. 2. Lisinopril 40 mg daily. 3. Metoprolol tartrate 25 mg b.i.d. 4. Methotrexate 4 tabs p.o. every Saturday, Saturday. 5. Prednisone 5 mg p.o. q.a.m. with meals. 6. Lovastatin 40 mg p.o. q.a.m. with meals. New medications: 1. Ciprofloxacin 500 mg p.o. b.i.d. x7 days. The patient will be discharged in stable condition to follow up with me in 7 days. Job ID: [id number] MTDD
[2020-05-27] MEDS ORDERED: Methotrexate Sodium 2.5 MG TAB PO SCH (21:00)
== END 2020-05-24 13:55 | disposition home or self-care (01) ==
LOC: NAV ACUTE 11:44
PROVIDERS: ADMIT Family Medicine; ATTEND Family Medicine
DX: N39.0 Urinary tract infection, site not specified (principal); R41.0 Disorientation, unspecified; K21.9 Gastro-esophageal reflux disease without esophagitis; I10 Essential (primary) hypertension; E78.5 Hyperlipidemia, unspecified; G89.29 Other chronic pain; M54.5 Low back pain; I25.10 Atherosclerotic heart disease of native coronary artery without angina pectoris; F03.90 Unspecified dementia, unspecified severity, without behavioral disturbance, psychotic disturbance, mood disturbance, and anxiety; Z79.52 Long term (current) use of systemic steroids; Z79.899 Other long term (current) drug therapy; Z88.4 Allergy status to anesthetic agent; Z88.5 Allergy status to narcotic agent; Z88.6 Allergy status to analgesic agent
CPT/HCPCS: 0240U; 36416; 71045; 80048; 80053; 81003; 81015; 83605; 85025; 87040; 87077; 87086; 87186; 87804; 93005; 96365; 96366; 96376; G0378; J0692; J3490; J7050; J7512

== ENCOUNTER 2020-06-06 10:06 | Emergency (ER) | payer MEDICARE, OTHER ==
[2020-06-06] MEDS ORDERED: diphenhydrAMINE 50 MG/ML VIAL ONE (11:02)
[2020-06-06] MEDS ORDERED: Sodium Chloride 0.9% 1,000 ML ONE (11:02)
[2020-06-06] MEDS ORDERED: Metoclopramide HCl 10 MG/2 ML VIAL ONE (11:02)
[2020-06-06 11:26] LABS: #Eosinphils 0.1 thou/uL (0.0-0.7); #Lymphocytes 0.3 thou/uL (1.20-3.40); #Neutrophils 5.8 thou/uL (1.40-6.50); %Basophils 0.3 % (0.0-1.0); %Eosinophils 1.3 % (0.0-10.0); %Lymphocytes 4.8 % (21.0-51.0); %Monocytes 0.7 % (0.0-10.0); %Neutrophils 92.9 % (42.0-75.0); Hemoglobin 10.7 g/dL (12.0-16.0); Mean Corpuscular HGB CONC 32.4 g/dL (32.0-36.0); Mean Corpuscular Hemoglobin 28.5 pg (27.0-31.0); Mean Corpuscular Volume 88.1 fL (78.0-98.0); Mean Platelet Volume 8.9 fL (7.4-10.4); Platelet Count 181 thou/uL (130-400); RBC Distribution Width 16.8 % (11.5-14.5); Red Blood Cell (RBC) Count 3.75 mill/uL (4.20-5.40); White Blood Cell (WBC) Count 6.2 thou/uL (4.8-10.8)
[2020-06-06 11:39] LABS: ALT (SGPT) 26 U/L (8-55); AST (SGOT) 27 U/L (5-34); Albumin 3.6 g/dL (3.4-4.8); Alkaline Phosphatase 60 U/L (40-110); Anion Gap 14 mmol/L (10-20); BUN (Urea Nitrogen) 9 mg/dL (9.8-20.1); Bilirubin, Total 0.9 mg/dL (0.2-1.2); Calc. Creatinine Clearance 0 mL/min (70-130); Calcium 8.7 mg/dL (7.8-10.44); Carbon Dioxide 24 mmol/L (23-31); Chloride 105 mmol/L (98-107); Globulin 2.3 g/dL (2.4-3.5); Glucose 111 mg/dL (83-110); Potassium 3.2 mmol/L (3.5-5.1); Protein, Total 5.9 g/dL (5.8-8.1); Sodium 140 mmol/L (136-145)
[2020-06-06 11:49] LABS: Bilirubin Negative (Negative); Blood, Urine Trace (Negative); Clarity Clear (Clear); Glucose, Urine (Dipstick) Negative (Negative); Ketone, Urine Negative (Negative); Leukocyte Moderate (Negative); Nitrite Negative (Negative); Protein, Urine (Dipstick) Negative (Neg-Trace)
[2020-06-06 11:52] LABS: Bacteria/HPF Rare-Few HPF (None Seen)
--- NOTE | 2020-06-06 13:18 | CT ---
CT CERVICAL SPINE WITHOUT CONTRAST: INDICATION: Neck pain. COMPARISON: Comparison is made to recent CT cervical spine dated 04/27/2020. FINDINGS: Vertebral bodies maintain height and alignment. The degenerative changes are again noted with loss o f disk space at C4-5, C5-6, and C6-7. Anterior spurring at these levels. Posterior spondylosis at t hese levels appears stable. Posterior spondylosis at the C4-5 level mildly impinges on the anterior cord. There is bilateral foraminal narrowing at this level more severe on the right due to the facet and uncinate hypertrophy. At C5-6, there is right foraminal stenosis primarily due to uncinate hypertrophy. Mild posterior spo ndylosis. No fracture or acute abnormality. IMPRESSION: Degenerative changes of the cervical spine again noted, most pronounced at the C4-5 and C5-6 levels a s described. POS: [facility]
== END 2020-06-06 13:40 | disposition home or self-care (01) ==
LOC: NAV ERS 10:06
DX: G44.209 Tension-type headache, unspecified, not intractable (principal); M54.2 Cervicalgia; K21.9 Gastro-esophageal reflux disease without esophagitis; I10 Essential (primary) hypertension; J44.9 Chronic obstructive pulmonary disease, unspecified; E78.00 Pure hypercholesterolemia, unspecified; Z79.899 Other long term (current) drug therapy
CPT/HCPCS: 72125; 80053; 81003; 81015; 85025; 96365; 96375; J1200; J2765; J7050

== ENCOUNTER 2020-06-23 11:20 | Emergency (ER) | payer MEDICARE, OTHER ==
[2020-06-23 11:56] LABS: Bilirubin Negative (Negative); Blood, Urine Trace (Negative); Clarity Clear (Clear); Glucose, Urine (Dipstick) Negative (Negative); Ketone, Urine Negative (Negative); Leukocyte Small (Negative); Nitrite Negative (Negative); Protein, Urine (Dipstick) Negative (Neg-Trace); Urobilinogen 0.2 mg/dL (Less than 2)
[2020-06-23 12:05] LABS: Bacteria/HPF Rare-Few HPF (None Seen); RBC/HPF 0-3 HPF (0-3); Squamous Epithelial 0-3 HPF (0-3)
[2020-06-23] MEDS ORDERED: Morphine 4 MG/ML VIAL ONE (12:30)
[2020-06-23] MEDS ORDERED: Ondansetron PF 4 MG/2 ML Vial ONE ×2 (12:30)
[2020-06-23 13:04] LABS: #Basophils 0.2 thou/uL (0.0-0.2); #Eosinphils 0.1 thou/uL (0.0-0.7); #Lymphocytes 0.4 thou/uL (1.20-3.40); #Monocytes 0.6 thou/uL (0.11-0.59); #Neutrophils 7.2 thou/uL (1.40-6.50); %Basophils 1.8 % (0.0-1.0); %Eosinophils 0.9 % (0.0-10.0); %Lymphocytes 4.9 % (21.0-51.0); %Monocytes 6.7 % (0.0-10.0); %Neutrophils 85.8 % (42.0-75.0); ALT (SGPT) 21 U/L (8-55); AST (SGOT) 19 U/L (5-34); Albumin 4.2 g/dL (3.4-4.8); Alkaline Phosphatase 56 U/L (40-110); Anion Gap 16 mmol/L (10-20); BUN (Urea Nitrogen) 9 mg/dL (9.8-20.1); Bilirubin, Total 0.6 mg/dL (0.2-1.2); Calc. Creatinine Clearance 0 mL/min (70-130); Calcium 9.2 mg/dL (7.8-10.44); Carbon Dioxide 23 mmol/L (23-31); Chloride 109 mmol/L (98-107); Globulin 2.3 g/dL (2.4-3.5); Glucose 98 mg/dL (83-110); Hemoglobin 12.3 g/dL (12.0-16.0); Mean Corpuscular HGB CONC 31.2 g/dL (32.0-36.0); Mean Corpuscular Hemoglobin 28.5 pg (27.0-31.0); Mean Corpuscular Volume 91.5 fL (78.0-98.0); Mean Platelet Volume 8.4 fL (7.4-10.4); Platelet Count 195 thou/uL (130-400); Potassium 3.8 mmol/L (3.5-5.1); Protein, Total 6.5 g/dL (5.8-8.1); RBC Distribution Width 18.5 % (11.5-14.5); Red Blood Cell (RBC) Count 4.31 mill/uL (4.20-5.40); Sodium 144 mmol/L (136-145); White Blood Cell (WBC) Count 8.4 thou/uL (4.8-10.8)
[2020-06-23] MEDS ORDERED: cefTRIAXone\\ROCEPHIN 1 GM VIAL ONE (13:12)
[2020-06-23] MEDS ORDERED: Sodium Chloride 0.9% 100 ML ONE (13:12)
== END 2020-06-23 13:45 | disposition home or self-care (01) ==
LOC: NAV ERS 11:20
DX: N39.0 Urinary tract infection, site not specified (principal); I10 Essential (primary) hypertension; M06.9 Rheumatoid arthritis, unspecified; F03.90 Unspecified dementia, unspecified severity, without behavioral disturbance, psychotic disturbance, mood disturbance, and anxiety; K21.9 Gastro-esophageal reflux disease without esophagitis; J44.9 Chronic obstructive pulmonary disease, unspecified; E78.00 Pure hypercholesterolemia, unspecified; M19.90 Unspecified osteoarthritis, unspecified site; Z87.891 Personal history of nicotine dependence; Z79.899 Other long term (current) drug therapy
CPT/HCPCS: 80053; 81003; 81015; 84484; 85025; 87086; 96365; 96375; J0696; J2270; J2405; J3490

== ENCOUNTER 2020-06-26 10:09 | Emergency (ER) | payer MEDICARE, OTHER ==
[2020-06-26] MEDS ORDERED: Morphine 4 MG/ML VIAL ONE (10:38)
[2020-06-26] MEDS ORDERED: Ondansetron PF 4 MG/2 ML Vial ONE (10:39)
[2020-06-26] MEDS ORDERED: Lisinopril 20 MG TAB ONE (10:39)
[2020-06-26] MEDS ORDERED: Metoprolol Tartrate 25 MG TAB ONE (10:39)
[2020-06-26] MEDS ORDERED: Ketorolac Tromethamine 30 MG/ML VIAL ONE (10:39)
[2020-06-26 11:08] LABS: #Basophils 0.1 thou/uL (0.0-0.2); #Eosinphils 0.1 thou/uL (0.0-0.7); #Lymphocytes 1.3 thou/uL (1.20-3.40); #Monocytes 0.4 thou/uL (0.11-0.59); #Neutrophils 5.7 thou/uL (1.40-6.50); %Basophils 0.7 % (0.0-1.0); %Eosinophils 1.6 % (0.0-10.0); %Lymphocytes 17.4 % (21.0-51.0); %Monocytes 4.7 % (0.0-10.0); %Neutrophils 75.5 % (42.0-75.0); Hemoglobin 12.7 g/dL (12.0-16.0); Mean Corpuscular HGB CONC 29.8 g/dL (32.0-36.0); Mean Corpuscular Volume 93.9 fL (78.0-98.0); Mean Platelet Volume 8.2 fL (7.4-10.4); Platelet Count 133 thou/uL (130-400); RBC Distribution Width 18.6 % (11.5-14.5); Red Blood Cell (RBC) Count 4.53 mill/uL (4.20-5.40); White Blood Cell (WBC) Count 7.6 thou/uL (4.8-10.8)
[2020-06-26 11:22] LABS: ALT (SGPT) 20 U/L (8-55); AST (SGOT) 29 U/L (5-34); Albumin 3.9 g/dL (3.4-4.8); Alkaline Phosphatase 48 U/L (40-110); Anion Gap 16 mmol/L (10-20); BUN (Urea Nitrogen) 8 mg/dL (9.8-20.1); Bilirubin, Total 0.7 mg/dL (0.2-1.2); Calc. Creatinine Clearance 0 mL/min (70-130); Calcium 8.1 mg/dL (7.8-10.44); Carbon Dioxide 16 mmol/L (23-31); Chloride 111 mmol/L (98-107); Globulin 2.6 g/dL (2.4-3.5); Glucose 78 mg/dL (83-110); Lipase 26 U/L (8-78); Potassium 4.1 mmol/L (3.5-5.1); Protein, Total 6.5 g/dL (5.8-8.1); Sodium 139 mmol/L (136-145)
[2020-06-26 11:27] LABS: Magnesium 2.5 mg/dL (1.6-2.6)
--- NOTE | 2020-06-26 11:44 | CT ---
EXAM: CT abdomen and pelvis without contrast PROVIDED CLINICAL HISTORY: Right flank pain COMPARISON: 12/17/2019 FINDINGS: The visualized lung bases are free of significant opacity. There is no evidence for urinary tract calculi or hydronephrosis. Stable hyperdense left renal cyst. The solid abdominal organs are suboptimally evaluated in the absen ce of IV contrast material but demonstrate an otherwise unremarkable, unenhanced CT appearance. There is no bowel dilatation, inflammatory fat stranding, free fluid or free air apparent. The append ix appears normal. Moderate colonic and rectal fecal retention. The osseous structures demonstrate no concerning lytic or blastic lesions. IMPRESSION: No evidence for urinary tract calculi or hydronephrosis.
[2020-06-26] MEDS ORDERED: Fleet Enema 133 ML BOT ONE (12:00)
== END 2020-06-26 13:27 | disposition home or self-care (01) ==
LOC: NAV ERS 10:09
DX: K59.00 Constipation, unspecified (principal); M54.5 Low back pain; G89.29 Other chronic pain; I10 Essential (primary) hypertension; K21.9 Gastro-esophageal reflux disease without esophagitis; J44.9 Chronic obstructive pulmonary disease, unspecified; E78.5 Hyperlipidemia, unspecified; M19.90 Unspecified osteoarthritis, unspecified site; Z87.891 Personal history of nicotine dependence; Z79.52 Long term (current) use of systemic steroids; Z79.899 Other long term (current) drug therapy
CPT/HCPCS: 74176; 80053; 83690; 83735; 84484; 85025; 93005; 94760; 96374; 96375; J1885; J2270; J2405

== ENCOUNTER 2020-09-27 08:52 | Outpatient (CLI) | payer MEDICARE, MEDICAID | END 2020-09-27 08:53 | disposition home or self-care (01) | LOC: NAV CT 08:52 | PROVIDERS: ATTEND Family Medicine | DX: K76.89 Other specified diseases of liver (principal) | CPT/HCPCS: 36415; 82565 ==

== ENCOUNTER 2020-10-05 09:13 | Outpatient (CLI) | payer MEDICARE, OTHER ==
[~2020-10-05 09:13] MED LIST: Iopamidol 370 76% 100 ML VIAL ONE
== END 2020-10-05 09:14 | disposition home or self-care (01) ==
LOC: NAV CT 09:13
PROVIDERS: ATTEND Family Medicine
DX: K76.89 Other specified diseases of liver (principal); N28.1 Cyst of kidney, acquired
CPT/HCPCS: 74170; Q9967

== ENCOUNTER 2020-11-25 11:42 | Emergency (ER) | payer MEDICARE, OTHER ==
[2020-11-25 12:42] LABS: #Basophils 0.1 thou/uL (0.0-0.2); #Eosinphils 0.2 thou/uL (0.0-0.7); #Lymphocytes 0.6 thou/uL (1.20-3.40); #Monocytes 0.4 thou/uL (0.11-0.59); #Neutrophils 5.2 thou/uL (1.40-6.50); %Basophils 1.5 % (0.0-1.0); %Eosinophils 2.5 % (0.0-10.0); %Lymphocytes 8.6 % (21.0-51.0); %Monocytes 5.7 % (0.0-10.0); %Neutrophils 81.8 % (42.0-75.0); Mean Corpuscular HGB CONC 29.7 g/dL (32.0-36.0); Mean Corpuscular Hemoglobin 27.5 pg (27.0-31.0); Mean Corpuscular Volume 92.6 fL (78.0-98.0); Mean Platelet Volume 10.1 fL (7.4-10.4); Platelet Count 206 thou/uL (130-400); RBC Distribution Width 18.3 % (11.5-14.5); Red Blood Cell (RBC) Count 4.36 mill/uL (4.20-5.40); White Blood Cell (WBC) Count 6.4 thou/uL (4.8-10.8)
[2020-11-25] MEDS ORDERED: Sodium Chloride 0.9% 1,000 ML ONE (13:37)
[2020-11-25 13:46] LABS: ALT (SGPT) 17 U/L (8-55); AST (SGOT) 17 U/L (5-34); Albumin 3.5 g/dL (3.4-4.8); Alkaline Phosphatase 56 U/L (40-110); Anion Gap 13 mmol/L (10-20); BUN (Urea Nitrogen) 8 mg/dL (9.8-20.1); Bilirubin, Total 0.5 mg/dL (0.2-1.2); Calc. Creatinine Clearance 0 mL/min (70-130); Calcium 9.1 mg/dL (7.8-10.44); Carbon Dioxide 24 mmol/L (23-31); Chloride 109 mmol/L (98-107); Globulin 2.4 g/dL (2.4-3.5); Glucose 95 mg/dL (83-110); Potassium 3.5 mmol/L (3.5-5.1); Protein, Total 5.9 g/dL (5.8-8.1); Sodium 142 mmol/L (136-145)
== END 2020-11-25 14:55 | disposition home or self-care (01) ==
LOC: NAV ERS 11:42
DX: I10 Essential (primary) hypertension (principal); E86.0 Dehydration; R29.700 NIHSS score 0; E78.00 Pure hypercholesterolemia, unspecified; K21.9 Gastro-esophageal reflux disease without esophagitis; J44.9 Chronic obstructive pulmonary disease, unspecified; M19.90 Unspecified osteoarthritis, unspecified site; Z87.891 Personal history of nicotine dependence; Z79.52 Long term (current) use of systemic steroids; Z79.899 Other long term (current) drug therapy
CPT/HCPCS: 71045; 80053; 83880; 84484; 85025; 93005; J7050

== ENCOUNTER 2021-03-07 16:13 | Emergency (ER) | payer MEDICAID, MEDICARE ==
[2021-03-07] MEDS ORDERED: traMADol HCl 50 MG TAB ONE (17:17)
== END 2021-03-07 17:45 | disposition home or self-care (01) ==
LOC: NAV ERS 16:13
DX: S20.211A Contusion of right front wall of thorax, initial encounter (principal); K21.9 Gastro-esophageal reflux disease without esophagitis; I10 Essential (primary) hypertension; J44.9 Chronic obstructive pulmonary disease, unspecified; E78.00 Pure hypercholesterolemia, unspecified; Z87.891 Personal history of nicotine dependence; Z79.899 Other long term (current) drug therapy; W18.30XA Fall on same level, unspecified, initial encounter

== ENCOUNTER 2021-04-19 11:53 | Emergency (ER) | payer MEDICARE ==
[2021-04-19] MEDS ORDERED: traMADol HCl 50 MG TAB ONE (12:34)
[2021-04-19] MEDS ORDERED: Metoprolol Tartrate 25 MG TAB ONE (12:35)
[2021-04-19] MEDS ORDERED: Lisinopril 20 MG TAB ONE (12:35)
[2021-04-19 12:45] LABS: #Basophils 0.1 thou/uL (0.0-0.2); #Eosinphils 0.2 thou/uL (0.0-0.7); #Lymphocytes 1.3 thou/uL (1.20-3.40); #Monocytes 0.4 thou/uL (0.11-0.59); #Neutrophils 7.8 thou/uL (1.40-6.50); %Basophils 0.7 % (0.0-1.0); %Eosinophils 1.7 % (0.0-10.0); %Lymphocytes 13.1 % (21.0-51.0); %Monocytes 3.6 % (0.0-10.0); %Neutrophils 80.9 % (42.0-75.0); Hemoglobin 13.7 g/dL (12.0-16.0); Mean Corpuscular HGB CONC 30.2 g/dL (32.0-36.0); Mean Corpuscular Volume 89.5 fL (78.0-98.0); Mean Platelet Volume 7.4 fL (7.4-10.4); Platelet Count 197 thou/uL (130-400); Red Blood Cell (RBC) Count 5.07 mill/uL (4.20-5.40); White Blood Cell (WBC) Count 9.6 thou/uL (4.8-10.8)
[2021-04-19 12:51] LABS: ALT (SGPT) 18 U/L (8-55); AST (SGOT) 26 U/L (5-34); Albumin 4.4 g/dL (3.4-4.8); Alkaline Phosphatase 48 U/L (40-110); Anion Gap 16 mmol/L (10-20); BUN (Urea Nitrogen) 7 mg/dL (9.8-20.1); Bilirubin, Total 1.1 mg/dL (0.2-1.2); Calc. Creatinine Clearance 0 mL/min (70-130); Calcium 9.4 mg/dL (7.8-10.44); Carbon Dioxide 22 mmol/L (23-31); Chloride 106 mmol/L (98-107); Globulin 3.4 g/dL (2.4-3.5); Glucose 104 mg/dL (83-110); Potassium 3.7 mmol/L (3.5-5.1); Protein, Total 7.8 g/dL (5.8-8.1); Sodium 140 mmol/L (136-145)
[2021-04-19 13:38] LABS: Bilirubin Negative (Negative); Blood, Urine Trace (Negative); Clarity Clear (Clear); Glucose, Urine (Dipstick) Negative (Negative); Ketone, Urine Negative (Negative); Leukocyte Negative (Negative); Nitrite Negative (Negative); Protein, Urine (Dipstick) Negative (Neg-Trace); pH, Urine 8.5 (5.0-9.0)
[2021-04-19 13:57] LABS: RBC/HPF 0-3 HPF (0-3); Squamous Epithelial 0-3 HPF (0-3); WBC/HPF 0-3 HPF (0-3)
== END 2021-04-19 14:30 | disposition home or self-care (01) ==
LOC: NAV ERS 11:53
DX: S30.0XXA Contusion of lower back and pelvis, initial encounter (principal); M51.36 Other intervertebral disc degeneration, lumbar region; I10 Essential (primary) hypertension; J44.9 Chronic obstructive pulmonary disease, unspecified; E78.00 Pure hypercholesterolemia, unspecified; M19.90 Unspecified osteoarthritis, unspecified site; K21.9 Gastro-esophageal reflux disease without esophagitis; Z87.891 Personal history of nicotine dependence; Z79.52 Long term (current) use of systemic steroids; Z79.899 Other long term (current) drug therapy; W19.XXXA Unspecified fall, initial encounter
CPT/HCPCS: 70450; 72131; 80053; 81003; 81015; 85025

== ENCOUNTER 2021-04-24 09:49 | Emergency (ER) | payer MEDICARE ==
[2021-04-24] MEDS ORDERED: traMADol HCl 50 MG TAB ONE (10:29)
[2021-04-24] MEDS ORDERED: Acetaminophen 325 MG TAB ONE (10:29)
== END 2021-04-24 10:47 | disposition home or self-care (01) ==
LOC: NAV ERS 09:49
DX: R51.9 Headache, unspecified (principal); G89.29 Other chronic pain; K21.9 Gastro-esophageal reflux disease without esophagitis; I10 Essential (primary) hypertension; J44.9 Chronic obstructive pulmonary disease, unspecified; E78.00 Pure hypercholesterolemia, unspecified; M19.90 Unspecified osteoarthritis, unspecified site; Z87.891 Personal history of nicotine dependence; Z79.52 Long term (current) use of systemic steroids; Z79.899 Other long term (current) drug therapy
CPT/HCPCS: 99283

== ENCOUNTER 2021-08-02 15:20 | Emergency (ER) | payer MEDICARE, MEDICAID ==
[2021-08-02] MEDS ORDERED: Ketorolac Tromethamine 30 MG/ML VIAL ONE (16:48)
[2021-08-02] MEDS ORDERED: Acetaminophen/Codeine 30-300mg Tablet ONE (16:48)
== END 2021-08-02 17:58 | disposition home or self-care (01) ==
LOC: NAV ERS 15:20
DX: M51.36 Other intervertebral disc degeneration, lumbar region (principal); G89.29 Other chronic pain; K21.9 Gastro-esophageal reflux disease without esophagitis; I10 Essential (primary) hypertension; J44.9 Chronic obstructive pulmonary disease, unspecified; E78.00 Pure hypercholesterolemia, unspecified; M19.90 Unspecified osteoarthritis, unspecified site; Z87.891 Personal history of nicotine dependence; Z79.899 Other long term (current) drug therapy; Z79.52 Long term (current) use of systemic steroids
CPT/HCPCS: 96372; J1885

== ENCOUNTER → 2021-08-08 | Day surgery (SDC) | payer MEDICARE, MEDICAID | LOC: NAV ER/OP 12:12 | PROVIDERS: ATTEND Internal Medicine Rheumatology | DX: M05.79 Rheumatoid arthritis with rheumatoid factor of multiple sites without organ or systems involvement (principal); Z88.4 Allergy status to anesthetic agent; Z88.5 Allergy status to narcotic agent; Z88.8 Allergy status to other drugs, medicaments and biological substances | CPT/HCPCS: 96372 ==

== ENCOUNTER 2021-08-18 12:15 | Emergency (ER) | payer MEDICARE, MEDICAID ==
[2021-08-18 13:07] LABS: #Basophils 0.1 thou/uL (0.0-0.2); #Eosinphils 0.1 thou/uL (0.0-0.7); #Lymphocytes 0.9 thou/uL (1.20-3.40); #Monocytes 0.5 thou/uL (0.11-0.59); #Neutrophils 5.3 thou/uL (1.40-6.50); %Basophils 1.2 % (0.0-1.0); %Eosinophils 2.1 % (0.0-10.0); %Lymphocytes 12.6 % (21.0-51.0); %Monocytes 6.7 % (0.0-10.0); %Neutrophils 77.5 % (42.0-75.0); Hemoglobin 12.5 g/dL (12.0-16.0); Mean Corpuscular HGB CONC 28.5 g/dL (32.0-36.0); Mean Corpuscular Hemoglobin 27.4 pg (27.0-31.0); Mean Corpuscular Volume 96.2 fL (78.0-98.0); Mean Platelet Volume 8.5 fL (7.4-10.4); Platelet Count 153 thou/uL (130-400); RBC Distribution Width 16.3 % (11.5-14.5); Red Blood Cell (RBC) Count 4.58 mill/uL (4.20-5.40); White Blood Cell (WBC) Count 6.9 thou/uL (4.8-10.8)
[2021-08-18 13:20] LABS: ALT (SGPT) 20 U/L (8-55); AST (SGOT) 23 U/L (5-34); Albumin 4.5 g/dL (3.4-4.8); Alkaline Phosphatase 51 U/L (40-110); Anion Gap 15 mmol/L (10-20); BUN (Urea Nitrogen) 11 mg/dL (9.8-20.1); Bilirubin, Total 0.5 mg/dL (0.2-1.2); Calc. Creatinine Clearance 0 mL/min (70-130); Calcium 10.5 mg/dL (7.8-10.44); Carbon Dioxide 25 mmol/L (23-31); Chloride 104 mmol/L (98-107); Glucose 102 mg/dL (83-110); Lipase 38 U/L (8-78); Magnesium 2.1 mg/dL (1.6-2.6); Potassium 4.3 mmol/L (3.5-5.1); Protein, Total 7.5 g/dL (5.8-8.1); Sodium 140 mmol/L (136-145)
[2021-08-18 13:29] LABS: Bilirubin Negative (Negative); Blood, Urine Trace (Negative); Clarity Clear (Clear); Glucose, Urine (Dipstick) Negative (Negative); Ketone, Urine Negative (Negative); Leukocyte Negative (Negative); Nitrite Negative (Negative); Protein, Urine (Dipstick) Negative (Neg-Trace); Urobilinogen 0.2 mg/dL (Less than 2); pH, Urine 6.5 (5.0-9.0)
[2021-08-18] MEDS ORDERED: Morphine 4 MG/ML VIAL ONE (13:30)
[2021-08-18] MEDS ORDERED: Ondansetron PF 4 MG/2 ML Vial ONE (13:30)
[2021-08-18] MEDS ORDERED: Sodium Chloride 0.9% 1,000 ML ONE (13:30)
[2021-08-18 13:59] LABS: Specific Gravity, Urine 1.008 (1.005-1.030)
[2021-08-18 14:00] LABS: Bacteria/HPF Rare-Few HPF (None Seen); RBC/HPF 0-3 HPF (0-3); Squamous Epithelial 0-3 HPF (0-3)
== END 2021-08-18 15:43 | disposition home or self-care (01) ==
LOC: NAV ERS 12:15
DX: R10.12 Left upper quadrant pain (principal); R10.30 Lower abdominal pain, unspecified; M54.50 Low back pain, unspecified; G89.29 Other chronic pain; K59.00 Constipation, unspecified; I10 Essential (primary) hypertension; J44.9 Chronic obstructive pulmonary disease, unspecified; E78.00 Pure hypercholesterolemia, unspecified; M19.90 Unspecified osteoarthritis, unspecified site; K21.9 Gastro-esophageal reflux disease without esophagitis; F03.90 Unspecified dementia, unspecified severity, without behavioral disturbance, psychotic disturbance, mood disturbance, and anxiety; Z87.891 Personal history of nicotine dependence; Z79.899 Other long term (current) drug therapy
CPT/HCPCS: 51701; 74177; 80053; 81003; 81015; 83605; 83690; 83735; 83880; 84484; 85025; 93005; 94760; 96374; 96375; J2270; J2405; J7050; Q9967

== ENCOUNTER → 2021-08-22 | Day surgery (SDC) | payer MEDICARE, OTHER | END | disposition home or self-care (01) | LOC: NAV ER/OP 10:26 | PROVIDERS: ATTEND Internal Medicine Rheumatology | DX: M05.79 Rheumatoid arthritis with rheumatoid factor of multiple sites without organ or systems involvement (principal); Z88.4 Allergy status to anesthetic agent; Z88.5 Allergy status to narcotic agent; Z88.8 Allergy status to other drugs, medicaments and biological substances | CPT/HCPCS: 96372 ==

== ENCOUNTER 2021-09-14 09:30 | Outpatient (CLI) | payer MEDICARE, OTHER | END 2021-09-14 09:31 | disposition home or self-care (01) | LOC: NAV LABSP 09:30 | PROVIDERS: ATTEND Family Medicine | DX: K92.1 Melena (principal) | CPT/HCPCS: 82274 ==

== ENCOUNTER 2021-09-21 10:17 | Outpatient (CLI) | payer MEDICARE, OTHER | END 2021-09-21 10:18 | disposition home or self-care (01) | LOC: NAV ER/OP 10:17 | PROVIDERS: ATTEND Internal Medicine Rheumatology | DX: M05.79 Rheumatoid arthritis with rheumatoid factor of multiple sites without organ or systems involvement (principal) | CPT/HCPCS: 96372 ==

== ENCOUNTER → 2021-10-22 | Day surgery (SDC) | payer MEDICARE, OTHER, MEDICAID | LOC: NAV ER/OP 09:50 | PROVIDERS: ATTEND Emergency Medicine Emergency Medical Services | DX: M05.79 Rheumatoid arthritis with rheumatoid factor of multiple sites without organ or systems involvement (principal); Z88.4 Allergy status to anesthetic agent; Z88.5 Allergy status to narcotic agent; Z88.6 Allergy status to analgesic agent | CPT/HCPCS: 96372 ==

== ENCOUNTER 2021-10-31 15:12 | Emergency (ER) | payer MEDICARE, OTHER ==
[2021-10-31 16:06] LABS: #Basophils 0.1 thou/uL (0.0-0.2); #Eosinphils 0.2 thou/uL (0.0-0.7); #Lymphocytes 1.8 thou/uL (1.20-3.40); #Monocytes 0.3 thou/uL (0.11-0.59); #Neutrophils 5.2 thou/uL (1.40-6.50); %Basophils 0.7 % (0.0-1.0); %Eosinophils 3.1 % (0.0-10.0); %Lymphocytes 23.5 % (21.0-51.0); %Monocytes 3.4 % (0.0-10.0); %Neutrophils 69.3 % (42.0-75.0); Hemoglobin 10.5 g/dL (12.0-16.0); Mean Corpuscular HGB CONC 27.4 g/dL (32.0-36.0); Mean Corpuscular Hemoglobin 28.5 pg (27.0-31.0); Mean Platelet Volume 8.4 fL (7.4-10.4); Platelet Count 165 thou/uL (130-400); RBC Distribution Width 18.3 % (11.5-14.5); Red Blood Cell (RBC) Count 3.67 mill/uL (4.20-5.40); White Blood Cell (WBC) Count 7.5 thou/uL (4.8-10.8)
[2021-10-31 16:11] LABS: ALT (SGPT) 22 U/L (8-55); AST (SGOT) 25 U/L (5-34); Albumin 4.1 g/dL (3.4-4.8); Alkaline Phosphatase 38 U/L (40-110); Anion Gap 16 mmol/L (10-20); BUN (Urea Nitrogen) 12 mg/dL (9.8-20.1); Bilirubin, Total 1.6 mg/dL (0.2-1.2); CK (CPK) 49 U/L (29-168); Calc. Creatinine Clearance 0 mL/min (70-130); Calcium 9.1 mg/dL (7.8-10.44); Carbon Dioxide 20 mmol/L (23-31); Chloride 103 mmol/L (98-107); Estimated GFR 60; Globulin 2.1 g/dL (2.4-3.5); Glucose 79 mg/dL (83-110); Lipase 22 U/L (8-78); Potassium 3.9 mmol/L (3.5-5.1); Protein, Total 6.2 g/dL (5.8-8.1); Sodium 135 mmol/L (136-145)
[2021-10-31 18:44] LABS: SARS-CoV-2 NAA Rapid Test Not Detected (NotDetected)
[2021-10-31 21:39] LABS: Troponin I Less than 0.010 ng/mL (< 0.028)
== END 2021-10-31 22:15 | disposition home or self-care (01) ==
LOC: NAV ERS 15:12
DX: R07.9 Chest pain, unspecified (principal); I10 Essential (primary) hypertension; J44.9 Chronic obstructive pulmonary disease, unspecified; K21.9 Gastro-esophageal reflux disease without esophagitis; E78.00 Pure hypercholesterolemia, unspecified; Z87.891 Personal history of nicotine dependence; Z20.822 Contact with and (suspected) exposure to COVID-19; Z79.899 Other long term (current) drug therapy
CPT/HCPCS: 71045; 80053; 82550; 83690; 84484; 85025; 93005; U0002

== ENCOUNTER → 2021-11-22 | Day surgery (SDC) | payer MEDICARE | END | disposition home or self-care (01) | LOC: NAV ER/OP 11:10 | PROVIDERS: ATTEND Internal Medicine Rheumatology | DX: M05.79 Rheumatoid arthritis with rheumatoid factor of multiple sites without organ or systems involvement (principal); Z88.4 Allergy status to anesthetic agent; Z88.5 Allergy status to narcotic agent; Z88.8 Allergy status to other drugs, medicaments and biological substances | CPT/HCPCS: 96372 ==

== ENCOUNTER 2021-11-28 11:07 | Emergency (ER) | payer MEDICARE ==
[2021-11-28] MEDS ORDERED: Tetracaine 0.5% PF 4 ML BOT ONE (11:28)
[2021-11-28] MEDS ORDERED: Fluorescein Opthalmic Strip ONE (11:28)
== END 2021-11-28 11:36 | disposition home or self-care (01) ==
LOC: NAV ERS 11:07
DX: H10.9 Unspecified conjunctivitis (principal); K21.9 Gastro-esophageal reflux disease without esophagitis; I10 Essential (primary) hypertension; J44.9 Chronic obstructive pulmonary disease, unspecified; E78.00 Pure hypercholesterolemia, unspecified; Z87.891 Personal history of nicotine dependence; Z79.899 Other long term (current) drug therapy
CPT/HCPCS: 99282

== ENCOUNTER → 2021-12-27 | Day surgery (SDC) | payer MEDICARE | END | disposition home or self-care (01) | LOC: NAV ER/OP 11:16 | PROVIDERS: ATTEND Internal Medicine Rheumatology | DX: M05.79 Rheumatoid arthritis with rheumatoid factor of multiple sites without organ or systems involvement (principal); Z88.4 Allergy status to anesthetic agent; Z88.5 Allergy status to narcotic agent; Z88.8 Allergy status to other drugs, medicaments and biological substances | CPT/HCPCS: 96372 ==

== ENCOUNTER → 2022-01-18 | Day surgery (SDC) | payer MEDICARE, MEDICAID | END | disposition home or self-care (01) | LOC: NAV ER/OP 12:24 | PROVIDERS: ATTEND Internal Medicine Rheumatology | DX: M05.79 Rheumatoid arthritis with rheumatoid factor of multiple sites without organ or systems involvement (principal); Z88.4 Allergy status to anesthetic agent; Z88.5 Allergy status to narcotic agent; Z88.8 Allergy status to other drugs, medicaments and biological substances | CPT/HCPCS: 96372 ==

== ENCOUNTER → 2022-02-23 | Day surgery (SDC) | payer MEDICARE ==
[~2022-02-23] MED LIST changes: -Iopamidol 370 76% 100 ML VIAL ONE; +Oseltamivir 6 MG/ML ORAL SUSP ONE
== END | disposition home or self-care (01) ==
LOC: NAV ER/OP 10:36
PROVIDERS: ATTEND Internal Medicine Rheumatology
DX: M05.79 Rheumatoid arthritis with rheumatoid factor of multiple sites without organ or systems involvement (principal); Z88.4 Allergy status to anesthetic agent; Z88.5 Allergy status to narcotic agent; Z88.8 Allergy status to other drugs, medicaments and biological substances
CPT/HCPCS: 96372

== ENCOUNTER 2022-03-09 14:35 | Observation (INO) | payer MEDICARE, MEDICAID ==
[2022-03-09] MEDS ORDERED: Acetaminophen 500 MG TAB ONE (15:29)
[2022-03-09 16:11] LABS: Mean Corpuscular HGB CONC 31.4 g/dL (32.0-36.0); Mean Corpuscular Hemoglobin 28.7 pg (27.0-31.0); Mean Corpuscular Volume 91.3 fl (78.0-98.0); Mean Platelet Volume 11.4 fL (7.4-10.4); Platelet Count 90 10x3/uL (130-400); RBC Distribution Width 15.6 % (11.5-14.5); Red Blood Cell (RBC) Count 4.18 mill/uL (4.20-5.40); White Blood Cell (WBC) Count 3.9 10x3/uL (4.8-10.8)
[2022-03-09 16:16] LABS: MDiff Complete? YES; Manual Diff?? YES
[2022-03-09 16:19] LABS: Band 1 % (5-11); Eosinophils 4 % (0-10); Lymphocytes 15 % (21-51); Monocytes 8 % (0-10); Neutrophil 70 % (42-75); Platelet Morphology Comment Appears Decreased; Reactive Lymphocytes 2 % (0-10)
[2022-03-09 16:23] LABS: ALT (SGPT) 16 U/L (8-55); AST (SGOT) 26 U/L (5-34); Albumin 3.9 g/dL (3.4-4.8); Alkaline Phosphatase 42 U/L (40-110); Anion Gap 15 mmol/L (10-20); BUN (Urea Nitrogen) 10 mg/dL (9.8-20.1); Bilirubin, Total 0.8 mg/dL (0.2-1.2); Calc. Creatinine Clearance 0 mL/min (70-130); Calcium 8.5 mg/dL (7.8-10.44); Carbon Dioxide 22 mmol/L (23-31); Chloride 105 mmol/L (98-107); Estimated GFR 64; Globulin 2.4 g/dL (2.4-3.5); Glucose 98 mg/dL (83-110); Potassium 4.1 mmol/L (3.5-5.1); Protein, Total 6.3 g/dL (5.8-8.1); Sodium 138 mmol/L (136-145)
[2022-03-09] MEDS ORDERED: Oseltamivir 75 MG CAP ONE (17:14)
[2022-03-09 17:26] LABS: Bilirubin Negative (Negative); Blood, Urine Trace (Negative); Clarity Slightly Cloudy (Clear); Glucose, Urine (Dipstick) Negative (Negative); Ketone, Urine Negative (Negative); Leukocyte Negative (Negative); Nitrite Negative (Negative); Protein, Urine (Dipstick) Negative (Neg-Trace); Specific Gravity, Urine 1.015 (1.005-1.030)
[2022-03-09 17:33] LABS: Bacteria/HPF 2+ HPF (None Seen); Squamous Epithelial 0-3 HPF (0-3); WBC/HPF 0-3 HPF (0-3)
[2022-03-09 17:57] LABS: SARS-CoV-2 NAA Rapid Test Not Detected (NotDetected)
[2022-03-09] MEDS ORDERED: Sodium Chloride 0.9% 1,000 ML ONE (17:59)
[2022-03-09 19:00] VITALS: BMI 19.8
[2022-03-09] MEDS ORDERED: Ondansetron ODT 4 MG TAB PO PRN (20:36)
[2022-03-09] MEDS ORDERED: Ondansetron PF 4 MG/2 ML Vial IVP PRN (20:36)
[2022-03-09] MEDS ORDERED: Acetaminophen 325 MG TAB PO PRN (20:36)
[2022-03-09] MEDS ORDERED: Sodium Chloride 0.9% 1,000 ML IV SCH (20:45)
[2022-03-09] MEDS: Oseltamivir 75 MG CAP PO SCH ×2 (20:47→23:12)
[2022-03-09] MEDS ORDERED: Oseltamivir 75 MG CAP PO SCH (21:00)
[2022-03-09 22:04] VITALS: TEMP 97.8
[2022-03-10 00:06] VITALS: BP 111/54
[2022-03-10] MEDS ORDERED: predniSONE 5 MG TAB PO SCH (08:00)
[2022-03-10] MEDS ORDERED: Lisinopril 20 MG TAB PO SCH (09:00)
[2022-03-10] MEDS ORDERED: Atorvastatin Calcium 10 MG TAB PO SCH (21:00)
== END 2022-03-09 21:45 | disposition critical access hospital (66) ==
LOC: NAV ERS 14:35 → NAV ACUTE 18:37 → INTOOBSV 18:37
PROVIDERS: ADMIT Family Medicine; ATTEND Family Medicine
DX: J10.1 Influenza due to other identified influenza virus with other respiratory manifestations (principal); R53.1 Weakness; D72.819 Decreased white blood cell count, unspecified; F03.90 Unspecified dementia, unspecified severity, without behavioral disturbance, psychotic disturbance, mood disturbance, and anxiety; K21.9 Gastro-esophageal reflux disease without esophagitis; I10 Essential (primary) hypertension; J44.9 Chronic obstructive pulmonary disease, unspecified; E78.00 Pure hypercholesterolemia, unspecified; M19.90 Unspecified osteoarthritis, unspecified site; Z87.891 Personal history of nicotine dependence; Z79.52 Long term (current) use of systemic steroids; Z79.899 Other long term (current) drug therapy; Z88.5 Allergy status to narcotic agent; Z88.6 Allergy status to analgesic agent; Z88.8 Allergy status to other drugs, medicaments and biological substances; Z20.822 Contact with and (suspected) exposure to COVID-19; R41.82 Altered mental status, unspecified
CPT/HCPCS: 36416; 70450; 71045; 80053; 81003; 81015; 83605; 83880; 84484; 85025; 87040; 87086; 87804; 93005; 96365; 96375; G0378; J0696; J3370; J3490; J7050; U0002

== ENCOUNTER 2022-03-09 21:46 | Emergency (ER) | payer MEDICARE, MEDICAID ==
[2022-03-09] MEDS ORDERED: cefTRIAXone\\ROCEPHIN 2 GM VIAL ONE (22:54)
[2022-03-09] MEDS ORDERED: Sodium Chloride 0.9% 100 ML ONE (22:54)
[2022-03-09] MEDS ORDERED: Sodium Chloride 0.9% 250 ML 250 ML ONE (23:13)
== END 2022-03-09 23:38 | disposition short-term general hospital (02) ==
LOC: NAV ERS 21:46
DX: J10.1 Influenza due to other identified influenza virus with other respiratory manifestations (principal); R41.82 Altered mental status, unspecified; D72.819 Decreased white blood cell count, unspecified; E78.00 Pure hypercholesterolemia, unspecified; K21.9 Gastro-esophageal reflux disease without esophagitis; I10 Essential (primary) hypertension; J44.9 Chronic obstructive pulmonary disease, unspecified; Z87.891 Personal history of nicotine dependence
CPT/HCPCS: 36416; 87086; 96365; 96375; J0696; J3370; J3490; J7050

== ENCOUNTER → 2022-04-04 | Day surgery (SDC) | payer MEDICARE, MEDICAID | END | disposition home or self-care (01) | LOC: NAV ER/OP 15:51 | PROVIDERS: ATTEND Internal Medicine Rheumatology | DX: M05.79 Rheumatoid arthritis with rheumatoid factor of multiple sites without organ or systems involvement (principal); Z88.4 Allergy status to anesthetic agent; Z88.5 Allergy status to narcotic agent; Z88.8 Allergy status to other drugs, medicaments and biological substances | CPT/HCPCS: 96372 ==

== ENCOUNTER → 2022-05-09 | Day surgery (SDC) | payer MEDICARE | END | disposition home or self-care (01) | LOC: NAV ER/OP 11:27 | PROVIDERS: ATTEND Family Medicine | DX: M05.79 Rheumatoid arthritis with rheumatoid factor of multiple sites without organ or systems involvement (principal); Z88.4 Allergy status to anesthetic agent; Z88.5 Allergy status to narcotic agent; Z88.8 Allergy status to other drugs, medicaments and biological substances | CPT/HCPCS: 96372 ==

== ENCOUNTER 2022-06-25 20:10 | Emergency (ER) | payer MEDICARE ==
[2022-06-25] MEDS ORDERED: Metoprolol Tartrate 25 MG TAB ONE (20:57)
[2022-06-25 21:24] LABS: #Eosinphils 0.1 thou/uL (0.0-0.7); #Lymphocytes 1.2 thou/uL (1.20-3.40); #Monocytes 0.1 thou/uL (0.11-0.59); #Neutrophils 3.4 thou/uL (1.40-6.50); %Basophils 0.5 % (0.0-1.0); %Eosinophils 1.4 % (0.0-10.0); %Lymphocytes 25.4 % (21.0-51.0); %Monocytes 1.6 % (0.0-10.0); %Neutrophils 71.1 % (42.0-75.0); Mean Corpuscular HGB CONC 30.2 g/dL (32.0-36.0); Mean Corpuscular Hemoglobin 28.5 pg (27.0-31.0); Mean Corpuscular Volume 94.2 fl (78.0-98.0); Mean Platelet Volume 8.8 fL (7.4-10.4); Platelet Count 99 10x3/uL (130-400); Red Blood Cell (RBC) Count 3.87 mill/uL (4.20-5.40); White Blood Cell (WBC) Count 4.8 10x3/uL (4.8-10.8)
[2022-06-25 21:25] LABS: INR-International Normal Ratio 1.1; Prothrombin Time 14.4 sec (12.0-14.7)
[2022-06-25 21:27] LABS: PTT 27.7 sec (22.9-36.1)
[2022-06-25 21:34] LABS: ALT (SGPT) 13 U/L (8-55); AST (SGOT) 17 U/L (5-34); Albumin 3.7 g/dL (3.4-4.8); Alkaline Phosphatase 44 U/L (40-110); Anion Gap 13 mmol/L (10-20); BUN (Urea Nitrogen) 10 mg/dL (9.8-20.1); Bilirubin, Total 0.7 mg/dL (0.2-1.2); Calc. Creatinine Clearance 0 mL/min (70-130); Calcium 9.5 mg/dL (7.8-10.44); Carbon Dioxide 21 mmol/L (23-31); Chloride 107 mmol/L (98-107); Estimated GFR 59; Globulin 2.6 g/dL (2.4-3.5); Glucose 118 mg/dL (83-110); Potassium 4.1 mmol/L (3.5-5.1); Protein, Total 6.3 g/dL (5.8-8.1); Sodium 137 mmol/L (136-145)
[2022-06-25 21:46] LABS: Bacteria/HPF None Seen HPF (None Seen); Bilirubin Negative (Negative); Blood, Urine Trace (Negative); Clarity Clear (Clear); Glucose, Urine (Dipstick) Negative (Negative); Ketone, Urine Negative (Negative); Leukocyte Trace (Negative); Nitrite Negative (Negative); Protein, Urine (Dipstick) Negative (Neg-Trace); RBC/HPF None Seen HPF (0-3); Specific Gravity, Urine 1.005 (1.002-1.036); Squamous Epithelial None Seen HPF (0-3); Urobilinogen 0.2 mg/dL (Less than 2); WBC/HPF None Seen HPF (0-3)
== END 2022-06-25 22:33 | disposition home or self-care (01) ==
LOC: NAV ERS 20:10
DX: R63.0 Anorexia (principal); D63.8 Anemia in other chronic diseases classified elsewhere; I10 Essential (primary) hypertension; E78.00 Pure hypercholesterolemia, unspecified; K21.9 Gastro-esophageal reflux disease without esophagitis; J44.9 Chronic obstructive pulmonary disease, unspecified; Z87.891 Personal history of nicotine dependence
CPT/HCPCS: 36415; 80053; 81003; 81015; 85025; 85610; 85730; 99283

== ENCOUNTER → 2022-07-04 | Day surgery (SDC) | payer MEDICARE, MEDICAID | END | disposition home or self-care (01) | LOC: NAV ER/OP 09:15 | PROVIDERS: ATTEND Emergency Medicine | DX: M05.79 Rheumatoid arthritis with rheumatoid factor of multiple sites without organ or systems involvement (principal); Z88.4 Allergy status to anesthetic agent; Z88.5 Allergy status to narcotic agent; Z88.8 Allergy status to other drugs, medicaments and biological substances | CPT/HCPCS: 96372 ==

== ENCOUNTER 2022-09-06 09:04 | Emergency (ER) | payer MEDICARE, OTHER ==
[2022-09-06] MEDS ORDERED: Cyclobenzaprine 10 MG TAB ONE (09:45)
== END 2022-09-06 09:51 | disposition home or self-care (01) ==
LOC: NAV ERS 09:04
DX: M54.50 Low back pain, unspecified (principal); I10 Essential (primary) hypertension; J44.9 Chronic obstructive pulmonary disease, unspecified; Z87.891 Personal history of nicotine dependence
CPT/HCPCS: 99283